=== PATIENT | female | born 1960 | race Caucasian/White ===

== ENCOUNTER 2016-08-25 11:36 | Emergency (ER) | payer MEDICAID ==
[~2016-08-25] VITALS: Ht 134.6 cm; Wt 102.2 kg
[~2016-08-25 11:36] MED LIST: ASPI325T4 PO; CYCL-259 PO; GLYB1TAB12 PO; LISI-170 PO; MORP30TA81 PO; OXYC-229 PO; OXYC-302 PO; TRAZADONE PO; UNK CHOLESTEROL MED PO; WARF1TAB PO; [UNRECOGNIZED DRUG - REMARK] PEG; [UNRECOGNIZED DRUG - REMARK] PO
[2016-08-25] MEDS ORDERED: MAALOX/HYOSCYAMINE/LIDOCAINE 45 ML BOTTLE PO ONE (12:30)
[2016-08-25] MEDS ORDERED: SODIUM CHLORIDE 0.9% 1,000ML IVBOLUS ONE (12:30)
[2016-08-25] MEDS ORDERED: SODIUM CHLORIDE FLUSH 10ML SYR IVF ONE (12:30)
[2016-08-25 13:41] LABS: ASPARTATE AMINO TRANSFERASE 16 U/L (15-37); BLOOD UREA NITROGEN 9 mg/dL (7-18)
[2016-08-25] MEDS ORDERED: MAALOX/HYOSCYAMINE/LIDOCAINE 45 ML BOTTLE ONE (14:30)
[2016-08-25 15:07] LABS: IS PT STATUS REG ER OR PRE ER? YES
[2016-08-25] MEDS ORDERED: ONDANSETRON 2MG/ML, 2ML ONE (15:25)
[2016-08-25] MEDS ORDERED: HYDROmorphone 1 MG/ML, 1ML ONE ×2 (15:25→16:53)
[2016-08-25] MEDS ORDERED: ONDANSETRON 2MG/ML, 2ML IVPush ONE (15:30)
[2016-08-25] MEDS: HYDROmorphone 1 MG/ML, 1ML IVPush PRN ×2 (15:30→17:05)
[2016-08-25 17:06] VITALS: BP 139/69
== END 2016-08-25 17:20 | disposition home or self-care (01) ==
LOC: ED 15:02
DX: K29.00 Acute gastritis without bleeding (principal); I10 Essential (primary) hypertension; E11.9 Type 2 diabetes mellitus without complications; Z86.718 Personal history of other venous thrombosis and embolism
CPT/HCPCS: 36415; 76700; 80053; 83690; 84484; 85025; 85610; 93005; 96361; 96374; 96375; 96376; 99285; J1170; J2405; J7030

== ENCOUNTER 2016-10-02 08:58 | Inpatient (IN) | payer MEDICAID ==
[~2016-10-02] VITALS: Ht 152.4 cm; Wt 100.3 kg
[2016-10-02] MEDS ORDERED: RANI150T4 PO (09:21)
[2016-10-02] MEDS ORDERED: CHLO25TA PO (09:21)
[2016-10-02] MEDS ORDERED: ONDANSETRON 2MG/ML, 2ML IVPush ONE (09:30)
[2016-10-02] MEDS ORDERED: ASPIRIN 81 MG TABLET CHEW PO ONE (09:30)
[2016-10-02] MEDS ORDERED: SODIUM CHLORIDE FLUSH 10ML SYR IVF ONE (09:30)
[2016-10-02] MEDS ORDERED: MORPHINE SULFATE 4 MG/ML, 1ML ONE ×2 (09:48→14:14)
[2016-10-02] MEDS ORDERED: ASPIRIN 81 MG TABLET CHEW ONE (09:48)
[2016-10-02] MEDS ORDERED: ONDANSETRON 2MG/ML, 2ML ONE (09:49)
[2016-10-02] MEDS: MORPHINE SULFATE 4 MG/ML, 1ML IVPush PRN ×2 (10:02→14:17)
[2016-10-02 10:09] LABS: ASPARTATE AMINO TRANSFERASE 24 U/L (15-37); BLOOD UREA NITROGEN 23 mg/dL (7-18)
[2016-10-02 10:16] LABS: IS PT STATUS REG ER OR PRE ER? YES
[2016-10-02] MEDS ORDERED: OMNIPAQUE 350 MG/ML, 100ML BOTTLE ONE (11:20)
[2016-10-02] MEDS ORDERED: NITROGLYCERIN 0.4 MG BOTTLE (25 TABS) SL PRN (14:00)
[2016-10-02] MEDS ORDERED: ONDANSETRON ODT 4 MG PO PRN (14:00)
[2016-10-02] MEDS ORDERED: ACETAMINOPHEN 325 MG TABLET PO PRN (14:00)
[2016-10-02] MEDS ORDERED: NITROGLYCERIN 0.4 MG/SPRAY SL PRN (14:00)
[2016-10-02] MEDS ORDERED: ONDANSETRON 2MG/ML, 2ML IVPush PRN (14:00)
[2016-10-02] MEDS ORDERED: morphine SULFATE 10 MG/ML, 1ML IVPush PRN (14:00)
[2016-10-02] MEDS ORDERED: ENOXAPARIN 40 MG/0.4 ML SQ SCH (14:00)
[2016-10-02 15:08] VITALS: BP 135/87
[2016-10-02] MEDS: INSULIN ASPART 100 UNITS/ML, PEN SQ-INSULIN SCH ×2 (15:21→20:27)
[2016-10-02 16:43] LABS: IS PT STATUS REG ER OR PRE ER? NO
[2016-10-02 19:00] VITALS: BP 154/81
[2016-10-02] MEDS ORDERED: FAMOTIDINE 20 MG TABLET PO SCH (21:00)
[2016-10-02 22:25] LABS: IS PT STATUS REG ER OR PRE ER? NO
[2016-10-02] MEDS: OXYcodone/APAP 10/325MG TABLET PO PRN (22:32)
[2016-10-03 01:30] VITALS: BP 140/85
[2016-10-03] MEDS: OXYcodone/APAP 10/325MG TABLET PO PRN ×2 (05:51→12:02)
[2016-10-03] MEDS ORDERED: ASPIRIN 81 MG TABLET EC PO SCH (06:00)
[2016-10-03 06:27] LABS: BLOOD UREA NITROGEN 15 mg/dL (7-18)
[2016-10-03 06:31] LABS: ASPARTATE AMINO TRANSFERASE 24 U/L (15-37)
[2016-10-03] MEDS: INSULIN ASPART 100 UNITS/ML, PEN SQ-INSULIN SCH ×2 (07:00→11:00)
[2016-10-03] MEDS ORDERED: REGADENOSON 0.4 MG/5 ML SYRINGE ONE (07:53)
[2016-10-03 08:00] VITALS: BP 116/79
[2016-10-03] MEDS ORDERED: CHLORTHALIDONE 25 MG TABLET PO SCH (09:00)
[2016-10-03] MEDS ORDERED: LISINOPRIL 20 MG TABLET PO SCH (09:00)
[2016-10-03] MEDS ORDERED: DOCUSATE 100 MG CAPSULE PO PRN (12:00)
[2016-10-03 12:38] VITALS: BP 113/75
== END 2016-10-03 15:10 | disposition home or self-care (01) | DRG 194 ==
LOC: ED 09:29 → EDIP 12:55 → 5SO 14:41 → DCLOUNGE 10-03 14:50
PROVIDERS: ADMIT Internal Medicine
DX: R09.1 Pleurisy (principal); Z68.41 Body mass index [BMI] 40.0-44.9, adult; E11.9 Type 2 diabetes mellitus without complications; E78.5 Hyperlipidemia, unspecified; E66.01 Morbid (severe) obesity due to excess calories; I11.9 Hypertensive heart disease without heart failure; K21.9 Gastro-esophageal reflux disease without esophagitis; Z96.653 Presence of artificial knee joint, bilateral; R74.8 Abnormal levels of other serum enzymes; Z79.84 Long term (current) use of oral hypoglycemic drugs; Z80.9 Family history of malignant neoplasm, unspecified; Z83.3 Family history of diabetes mellitus; Z86.718 Personal history of other venous thrombosis and embolism
CPT/HCPCS: 36415; 71010; 71275; 78452; 80053; 80061; 82962; 83036; 83880; 84443; 84484; 85025; 85379; 85610; 85730; 93005; 93017; 93970; 96374; 96375; J1650; J2405; J2785; Q9967; A9502; C9898

== ENCOUNTER 2016-12-04 16:46 | Emergency (ER) | payer MEDICAID ==
[~2016-12-04] VITALS: Ht 162.6 cm; Wt 103.0 kg
[~2016-12-04 16:46] MED LIST changes: +ASPI325T17 PO; -ASPI325T4 PO; +CHLO25TA PO; -OXYC-229 PO; +OXYC-307 PO; +RANI150T4 PO
[2016-12-04] MEDS ORDERED: SODIUM CHLORIDE 0.9% 1,000ML IVBOLUS ONE (17:30)
[2016-12-04] MEDS ORDERED: SODIUM CHLORIDE FLUSH 10ML SYR IVF ONE (17:30)
[2016-12-04] MEDS ORDERED: ONDANSETRON 2MG/ML, 2ML IVPush ONE (17:30)
[2016-12-04 17:50] LABS: HEMATOCRIT 40.4 % (34.6-47.8); HEMOGLOBIN 13.6 g/dL (11.7-16.4); WHITE BLOOD COUNT 11.2 x10^3/uL (3.4-10)
[2016-12-04] MEDS ORDERED: MORPHINE SULFATE 4 MG/ML, 1ML ONE ×2 (17:50→19:25)
[2016-12-04] MEDS ORDERED: ONDANSETRON 2MG/ML, 2ML ONE (17:50)
[2016-12-04] MEDS: MORPHINE SULFATE 4 MG/ML, 1ML IVPush PRN ×2 (17:53→19:33)
[2016-12-04 18:02] LABS: BLOOD UREA NITROGEN 13 mg/dL (7-18)
[2016-12-04 18:06] LABS: ASPARTATE AMINO TRANSFERASE 29 U/L (15-37)
[2016-12-04] MEDS ORDERED: MAALOX/HYOSCYAMINE/LIDOCAINE 45 ML BTL ONE (18:41)
[2016-12-04] MEDS ORDERED: MAALOX/HYOSCYAMINE/LIDOCAINE 45 ML BTL PO ONE (19:00)
[2016-12-04] MEDS ORDERED: OMNIPAQUE 350 MG/ML, 100ML BOTTLE ONE (20:00)
[2016-12-04 21:07] VITALS: BP 194/88
== END 2016-12-04 21:11 | disposition home or self-care (01) ==
LOC: ED 18:35
DX: R10.13 Epigastric pain (principal); R11.2 Nausea with vomiting, unspecified; E11.9 Type 2 diabetes mellitus without complications; I10 Essential (primary) hypertension
CPT/HCPCS: 36415; 74020; 74174; 76700; 80053; 81003; 83690; 85025; 93005; 96361; 96374; 96375; 96376; 99285; J2405; J7030; Q9967

== ENCOUNTER 2017-03-11 15:15 | Emergency (ER) | payer MEDICAID ==
[~2017-03-11] VITALS: Ht 157.5 cm; Wt 100.0 kg
[2017-03-11] MEDS ORDERED: ASPIRIN 81 MG TABLET CHEW ONE (16:29)
[2017-03-11] MEDS ORDERED: SODIUM CHLORIDE 0.9% 1,000ML IVBOLUS ONE (16:30)
[2017-03-11] MEDS ORDERED: SODIUM CHLORIDE FLUSH 10ML SYR IVF ONE (16:30)
[2017-03-11] MEDS ORDERED: ASPIRIN 81 MG TABLET CHEW PO ONE (16:30)
[2017-03-11 16:36] VITALS: BP 150/90
[2017-03-11 16:40] LABS: HEMATOCRIT 39.3 % (34.6-47.8); HEMOGLOBIN 13.3 g/dL (11.7-16.4); WHITE BLOOD COUNT 7.9 x10^3/uL (3.4-10)
[2017-03-11 16:56] LABS: IS PT STATUS REG ER OR PRE ER? YES
[2017-03-11 17:29] LABS: BLOOD UREA NITROGEN 8 mg/dL (7-18)
== END 2017-03-11 17:45 | disposition home or self-care (01) ==
LOC: ED 16:28
DX: R09.1 Pleurisy (principal); I10 Essential (primary) hypertension; E11.9 Type 2 diabetes mellitus without complications; Z86.718 Personal history of other venous thrombosis and embolism; E78.00 Pure hypercholesterolemia, unspecified
CPT/HCPCS: 36415; 71010; 80048; 82040; 83605; 84484; 85025; 93005; 99285

== ENCOUNTER 2017-05-20 13:39 | Emergency (ER) | payer MEDICAID ==
[~2017-05-20] VITALS: Ht 160 cm; Wt 101.3 kg
[~2017-05-20 13:39] MED LIST changes: +GLYB-135 PO; -GLYB1TAB12 PO
[2017-05-20 13:45] VITALS: BP 167/110
[2017-05-20] MEDS ORDERED: METHOCARBAMOL 750 MG TABLET PO ONE (14:30)
[2017-05-20] MEDS ORDERED: METHOCARBAMOL 750 MG TABLET ONE (14:30)
[2017-05-20 14:47] LABS: CULTURE INDICATED? YES; MICROSCOPIC INDICATED
[2017-05-20 14:48] LABS: BASOPHILS # (AUTO) 0.04 x10^3/uL (0-0.1); BASOPHILS % (AUTO) 0 % (0-1); EOSINOPHILS # (AUTO) 0.09 x10^3/uL (0-0.4); EOSINOPHILS % (AUTO) 1 % (1-7); LYMPHOCYTES # (AUTO) 2.67 x10^3/uL (1-3.4); LYMPHOCYTES % (AUTO) 21 % (22-44); MD NO; MEAN CORPUSCULAR HEMOGLOBIN 31.9 pg (27.0-34.8); MEAN CORPUSCULAR VOLUME 93.7 fL (80-100); MONOCYTES % (AUTO) 8 % (2-9); NEUTROPHILS # (AUTO) 9.23 x10^3/uL (1.8-6.8); NEUTROPHILS % (AUTO) 71 % (42-75); PLATELET COUNT 422 x10^3/uL (130-400); RED BLOOD COUNT 4.49 x10^6/uL (3.82-5.3); RED CELL DISTRIBUTION WIDTH 13.8 % (9.6-15.2)
[2017-05-20 14:57] LABS: ANION GAP 7 mmol/L (5-15); CALCIUM 8.3 mg/dL (8.5-10.1); CHLORIDE 103 mmol/L (98-107); CREATININE 0.71 mg/dL (0.55-1.02)
== END 2017-05-20 15:11 | disposition home or self-care (01) ==
LOC: ED 14:37
DX: S33.5XXA Sprain of ligaments of lumbar spine, initial encounter (principal); E11.9 Type 2 diabetes mellitus without complications; E78.00 Pure hypercholesterolemia, unspecified; I10 Essential (primary) hypertension; X58.XXXA Exposure to other specified factors, initial encounter; Y93.89 Activity, other specified; Y99.8 Other external cause status; Y92.89 Other specified places as the place of occurrence of the external cause
CPT/HCPCS: 36415; 71046; 80048; 81001; 85025; 87086; 87147; 99285

== ENCOUNTER 2017-12-10 17:43 | Emergency (ER) | payer MEDICAID ==
[~2017-12-10] VITALS: Ht 160 cm; Wt 107.7 kg
[2017-12-10] MEDS ORDERED: ESOM20CA PO (18:21)
[2017-12-10] MEDS ORDERED: MAALOX/HYOSCYAMINE/LIDOCAINE 45 ML BTL PO ONE (18:30)
[2017-12-10] MEDS ORDERED: MAALOX/HYOSCYAMINE/LIDOCAINE 45 ML BTL ONE (18:34)
[2017-12-10 19:18] LABS: BASOPHILS # (AUTO) 0.08 x10^3/uL (0-0.1); BASOPHILS % (AUTO) 1 % (0-1); EOSINOPHILS # (AUTO) 0.14 x10^3/uL (0-0.4); EOSINOPHILS % (AUTO) 2 % (1-7); LYMPHOCYTES # (AUTO) 2.28 x10^3/uL (1-3.4); LYMPHOCYTES % (AUTO) 30 % (22-44); MD NO; MEAN CORPUSCULAR HEMOGLOBIN 31.3 pg (27.0-34.8); MEAN CORPUSCULAR HGB CONC 34.1 g/dL (32.4-35.8); MEAN CORPUSCULAR VOLUME 91.8 fL (80-100); MEAN PLATELET VOLUME 8.3 fL (7.4-10.4); MONOCYTES # (AUTO) 0.68 x10^3/uL (0.2-0.8); MONOCYTES % (AUTO) 9 % (2-9); NEUTROPHILS # (AUTO) 4.57 x10^3/uL (1.8-6.8); NEUTROPHILS % (AUTO) 59 % (42-75); PLATELET COUNT 312 x10^3/uL (130-400); RED BLOOD COUNT 4.11 x10^6/uL (3.82-5.3); RED CELL DISTRIBUTION WIDTH 14.1 % (9.6-15.2)
[2017-12-10 19:28] LABS: ALBUMIN 3.5 g/dL (3.4-5.0); ANION GAP 2 mmol/L (5-15); CALCIUM 8.5 mg/dL (8.5-10.1); CHLORIDE 107 mmol/L (98-107)
[2017-12-10 19:34] LABS: ALANINE AMINOTRANSFERASE 64 U/L (12-78); ALKALINE PHOSPHATASE 154 U/L (45-117); BILIRUBIN,TOTAL 0.5 mg/dL (0.2-1.0); CREATININE 0.73 mg/dL (0.55-1.02); TOTAL PROTEIN 7.8 g/dL (6.4-8.2); TROPONIN I < 0.015 ng/mL (0.000-0.045)
[2017-12-10 20:40] VITALS: BP 144/70
== END 2017-12-10 21:02 | disposition home or self-care (01) ==
LOC: ED 20:33
DX: K29.00 Acute gastritis without bleeding (principal); E78.00 Pure hypercholesterolemia, unspecified; I10 Essential (primary) hypertension; E11.9 Type 2 diabetes mellitus without complications; R06.02 Shortness of breath; Z86.718 Personal history of other venous thrombosis and embolism
CPT/HCPCS: 36415; 74021; 80053; 83690; 84484; 85025; 93005; 99285

== ENCOUNTER 2018-02-21 01:31 | Emergency (ER) | payer MEDICAID ==
[~2018-02-21] VITALS: Ht 157.5 cm; Wt 106.9 kg
[~2018-02-21 01:31] MED LIST changes: +ESOM20CA PO
[2018-02-21] MEDS ORDERED: PROCHLORPERAZINE 5 MG/ML, 2ML ONE (02:12)
[2018-02-21] MEDS ORDERED: ACETAMINOPHEN 325 MG TABLET ONE (02:12)
[2018-02-21] MEDS ORDERED: ASPIRIN 81 MG TABLET CHEW ONE (02:12)
[2018-02-21 02:16] LABS: BASOPHILS # (AUTO) 0.05 x10^3/uL (0-0.1); BASOPHILS % (AUTO) 0 % (0-1); EOSINOPHILS # (AUTO) 0.18 x10^3/uL (0-0.4); EOSINOPHILS % (AUTO) 2 % (1-7); LYMPHOCYTES # (AUTO) 2.85 x10^3/uL (1-3.4); LYMPHOCYTES % (AUTO) 26 % (22-44); MD NO; MEAN CORPUSCULAR HEMOGLOBIN 31.1 pg (27.0-34.8); MEAN CORPUSCULAR VOLUME 91.4 fL (80-100); MEAN PLATELET VOLUME 7.9 fL (7.4-10.4); MONOCYTES # (AUTO) 0.87 x10^3/uL (0.2-0.8); MONOCYTES % (AUTO) 8 % (2-9); NEUTROPHILS # (AUTO) 7.15 x10^3/uL (1.8-6.8); NEUTROPHILS % (AUTO) 64 % (42-75); PLATELET COUNT 370 x10^3/uL (130-400); RED BLOOD COUNT 4.34 x10^6/uL (3.82-5.3); RED CELL DISTRIBUTION WIDTH 13.8 % (9.6-15.2)
[2018-02-21 02:20] VITALS: BP 181/99
[2018-02-21 02:28] LABS: ALANINE AMINOTRANSFERASE 24 U/L (12-78); ALBUMIN 3.8 g/dL (3.4-5.0); ANION GAP 8 mmol/L (5-15); CALCIUM 8.9 mg/dL (8.5-10.1); CHLORIDE 104 mmol/L (98-107)
[2018-02-21] MEDS ORDERED: PROCHLORPERAZINE 5 MG/ML, 2ML IVPush ONE (02:30)
[2018-02-21] MEDS ORDERED: ASPIRIN 81 MG TABLET CHEW PO ONE (02:30)
[2018-02-21] MEDS ORDERED: ACETAMINOPHEN 325 MG TABLET PO ONE (02:30)
[2018-02-21 02:32] LABS: ALKALINE PHOSPHATASE 114 U/L (45-117); BILIRUBIN,TOTAL 0.6 mg/dL (0.2-1.0); TOTAL PROTEIN 8.3 g/dL (6.4-8.2); TROPONIN I < 0.015 ng/mL (0.000-0.045)
== END 2018-02-21 03:34 | disposition home or self-care (01) ==
LOC: ED 02:30
DX: G44.209 Tension-type headache, unspecified, not intractable (principal); R07.9 Chest pain, unspecified; I10 Essential (primary) hypertension; E78.00 Pure hypercholesterolemia, unspecified; E11.9 Type 2 diabetes mellitus without complications; Z87.440 Personal history of urinary (tract) infections; Z86.718 Personal history of other venous thrombosis and embolism; Z87.19 Personal history of other diseases of the digestive system
CPT/HCPCS: 36415; 71045; 80053; 84484; 85025; 93005; 96374; 99285; J0780

== ENCOUNTER → 2018-04-25 | Outpatient (CLI) | payer MEDICAID ==
[~2018-04-25] MED LIST changes: +REGADENOSON 0.4 MG/5 ML SYRINGE ONE
== END | disposition home or self-care (01) ==
LOC: CVU 08:28
PROVIDERS: ATTEND Internal Medicine Cardiovascular Disease
DX: R07.89 Other chest pain (principal); I10 Essential (primary) hypertension; E11.9 Type 2 diabetes mellitus without complications; R60.0 Localized edema; E66.01 Morbid (severe) obesity due to excess calories
CPT/HCPCS: 0399T; 93306; J2785